=== PATIENT | male | born 1970 | race Caucasian/White ===

== ENCOUNTER 2021-05-07 11:33 | Outpatient (CLI) | payer BC, SELFPAY ==
--- NOTE | 2021-05-07 11:53 | XR_ITS ---
WS: [id number] Chest 2 views, 05/07/2021 Clinical Data: COUGH/WHEEZING/TOBACCO USE/HTN Comparison: PA and lateral chest, 03/31/2008. Findings: No nodules, masses or effusions are seen. The heart is normal. The pulmonary vascularity is not increased. No pneumonia or pneumothorax is seen. There is minimal sclerosis of the anterior aspe ct of the right fifth rib which may be an incidental finding. XR/XR chest 2V* [id number] Impression: Negative for acute cardiopulmonary disease.
== END 2021-05-07 11:34 | disposition home or self-care (01) ==
LOC: RAD 11:42
PROVIDERS: PCP Nurse Practitioner Family; Visit Provider Nurse Practitioner Family
DX: I10 Essential (primary) hypertension (principal); R05.9 Cough, unspecified; R06.2 Wheezing; Z72.0 Tobacco use; Z68.33 Body mass index [BMI] 33.0-33.9, adult; J33.9 Nasal polyp, unspecified
CPT/HCPCS: 71046

== ENCOUNTER → 2021-07-04 10:08 | Outpatient (BNVA) | payer BC, SELFPAY | PROVIDERS: PCP Nurse Practitioner Family; Visit Provider Nurse Practitioner Family | DX: Z01.812 Encounter for preprocedural laboratory examination (principal) | CPT/HCPCS: 87635 ==

== ENCOUNTER 2021-07-10 13:36 | Outpatient (CLI) | payer BC, SELFPAY ==
--- NOTE | 2021-07-10 14:05 | PFTS_ITS ---
Date of Study:07/10/21 Date of Dictation: MECHANICS: Forced vital capacity (FVC) is normal. Forced expiratory volume in one second (FEV1) is normal. FEV1/FVC is normal. FLOW VOLUME LOOP: No peak expiratory flow on expiratory flow volume loop. LUNG VOLUMES: Total lung capacity (TLC) is normal. Residual volume (RV) is reduced. DIFFUSING CAPACITY FOR CARBON MONOXIDE: Normal. INTERPRETATION: The prebronchodilator spirometry is normal. No postbronchodilator spirometry was performed. There is nonspecific reduction in residual volume which is likely secondary to obesity. The total lung capacity is normal. Gas exchange (DLCO) is normal. MTDD
== END 2021-07-10 13:37 | disposition home or self-care (01) ==
LOC: RT 13:38
PROVIDERS: PCP Nurse Practitioner Family; Visit Provider Nurse Practitioner Family
DX: R06.2 Wheezing (principal); R05.9 Cough, unspecified; J30.2 Other seasonal allergic rhinitis
CPT/HCPCS: 94010; 94726; 94729

== ENCOUNTER 2021-11-20 09:59 | Emergency (ER) | payer BC, SELFPAY ==
[2021-11-20 10:03] VITALS: BP 160/83; PULSE 66; RESP 18; TEMP 36.6; O2SAT 99; BMI 34.0
[2021-11-20 10:29] LABS: Basophils # 0.1 10^3/uL (0.0-0.1); Basophils % 0.9 %; Eosinophils # 0.4 10^3/uL (0.0-0.8); Eosinophils % 3.1 %; Hematocrit 52.1 % (42.0-52.0); Hemoglobin 18.4 g/dL (11.7-16.6); Lymphocytes # 1.9 10^3/uL (0.8-4.8); Lymphocytes % 14.1 %; Mean Corpuscular HGB Conc 35.3 g/dL (30.0-36.0); Mean Corpuscular Hemoglobin 32.4 pg (28.0-34.0); Mean Corpuscular Volume 91.7 fl (80-94); Mean Platelet Volume 10.7 fL (7.4-10.4); Monocytes # 0.8 10^3/uL (0.2-0.9); Monocytes % 6.1 %; Neutrophils # 10.05 10^3/uL (1.8-7.7); Neutrophils % 75.3 %; Nucleated Red Blood Cells % 0 %; Platelet Count 229 10^3/cmm (130-400); Red Blood Count 5.68 10^6/uL (4.1-5.3); Red Cell Distribution Width 11.9 % (12.1-15.1); White Blood Count 13.4 10^3/uL (4.0-10.0)
[2021-11-20 10:48] LABS: Alanine Aminotransferase 21 U/L (0-41); Albumin Level 4.2 g/dL (3.5-5.2); Alkaline Phosphatase 149 IU/L (40-130); Aspartate Amino Transferase 22 U/L (0-40); Blood Urea Nitrogen 17 mg/dL (6-20); Calcium 8.7 mg/dL (8.5-10.5); Carbon Dioxide 22 mmol/L (22-29); Chloride 101 mmol/L (98-107); Globulin 2.6 g/dL (1.3-4.6); Glomerular Filtration Rate 64.4 mL/min (90-130); Glucose 130 mg/dL (65-115); Lipase 24 U/L (13-60); Osmolality Calculated 279 mOsm/kg (285-295); Sodium 133 mmol/L (136-145); Total Bilirubin 0.3 mg/dL (0.15-1.2); Total Protein 6.8 g/dL (6.6-8.7)
--- NOTE | 2021-11-20 11:18 | US_ITS ---
WS: [id number] ULTRASOUND ABDOMEN LIMITED CLINICAL INFORMATION: RUQ pain, N/V FINDINGS: Liver Size: Normal. Craniocaudal length: 15.5 cm. Echogenicity: Normal. Surface nodularity: None. Mass (size and location): None. Bile ducts Intrahepatic ducts: Normal. Common bile duct diameter: 0.5 cm. Gallbladder Cholelithiasis with gallbladder wall thickening. Shadowing gallstone near the gallbladder neck. Gallstones: Present Gallbladder sludge: None. Gallbladder wall thickenin.4 mm Pericholecystic fluid: None. Sonographic Murary sign: Absent Pancreas Not seen due to bowel gas Right kidney: Normal. Hydronephrosis: None. Size: 11.0 cm x 6.6 cm x 5.5 cm. Abdominal aorta and IVC Visualized portions are normal. Ascites: None. US/US gall bladder [id number] IMPRESSION: 1. Cholelithiasis with mild gallbladder wall thickening. Gallstone within the neck of the gallbladder. No pericholecystic fluid or edema. Negative Murray's s ign. 2. Normal common bile duct. 3. Liver is normal in appearance. 4. No hydronephrosis in RIGHT kidney. 5. No ascites.
--- NOTE | 2021-11-20 11:19 | ED_ITS ---
Documented by User: BOUBACAR Fitzgerald 11/20/21 13:35 HPI - Abdominal Pain General: Chief Complaint: Abdominal Pain Stated Complaint: ABD Pain, Vomiting Time Seen by Provider: 11/20/21 10:07 Source: patient and family Mode of arrival: ambulatory Limitations: no limitations History of Present Illness: Patient is a 51-year-old male who presents to ED today with a complaint of intermittent right upper quadrant abdominal pains over the past week or so. Patient states he has had several episodes of severe right upper quadrant pains almost always following eating over the past week. He has had associated nausea and vomiting along with the pains. Mild diarrhea. He has not noticed any blood in his stool or blood in his emesis. No fevers. Patient denies urinary symptoms. Patient states upon arrival he is not having any symtpoms. MD elicited complaint: abdominal pain Onset (ago): day(s) Pain Consistency: intermittent Location: RUQ Radiation: back Migration to: no migration Exacerbating factors: eating Relieving factors: nothing Associated Symptoms: Reports diarrhea, nausea and vomiting; Denies chills, dysuria, fever(s), hematochezia, hematuria, hematemesis and melena Review of Systems Const: Denies: fever(s), chills, body aches, fatigue or malaise Card: Denies: chest pain Resp: Denies: dyspnea GI: Reports: abdominal pain, nausea, vomiting and diarrhea; Denies: hematemesis, hematochezia or melena : Denies: flank pain, dysuria or hematuria Musc: Denies: neck pain, back pain, extremity pain or joint pain Skin/Breast: Denies: rash Neuro: Denies: headache(s) PFSH ED PFSH: Family History Other Cancer Diabetes Hypertension Social History Smoking and tobacco status: current some day smoker Physical Exam Const: COMMON NORMALS: no acute distress, patient oriented x3, no limitations and alert GENERAL APPEARANCE: cooperative NUTRITIONAL APPEARANCE: overweight ORIENTATION/CONSCIOUSNESS: Yes awake, Yes oriented to person, Yes oriented to place and Yes oriented to time Chest: COMMONS NORMALS: normal inspection of the chest and normal palpation of entire chest wall Resp: COMMON NORMALS: normal respiratory effort and clear to auscultation bilaterally AUSCULTATION: clear to auscultation bilaterally Cardio: COMMON NORMALS: regular rate and regular rhythm RATE: regular rate RHYTHM: regular rhythm GI: COMMON NORMALS: Normal to inspection, nondistended, normoactive bowel sounds present, Soft to palpation, No hepatosplenomegaly present and no masses INSPECTION: Yes normal to inspection AUSCULTATION: Yes normoactive bowel sounds PALPATION: Yes Soft to palpation, Yes Tenderness to palpation present (GI) (very mild RUQ/epigastric pain), No Guarding due to palpation present (GI), No Rigid due to palpation and Yes No hepatosplenomegaly present : COMMON NORMALS: Yes no CVA tenderness BLADDER/KIDNEY EXAM: Yes no CVA tenderness Back/Pelvis: COMMON NORMALS: no CVA tenderness, thoracic and lumbar spine normal to inspection, no thoracic nor lumbar tenderness and thoraco-lumbar ROM normal Extremity: COMMON NORMALS: normal to inspection Neuro: COMMON NORMALS: patient oriented x3, moves all extremities, no focal motor deficits and no sensory deficits noted SENSORIUM/ORIENTATION: Yes alert, Yes oriented to person, Yes oriented to place and Yes oriented to time Skin: COMMON NORMALS: no rashes or lesions noted GENERAL SKIN EXAM: no rashes or lesions noted Course Consultations: Consultation #1: Dr. Nina-we will see patient in office at first available appointment with plan for probable cholecystectomy this week; recommends placing patient on Augmentin twice daily Vital Signs: Vital signs: Vital Signs Temperature 97.8 F 11/20/21 10:03 Pulse Rate 65 11/20/21 13:04 Respiratory Rate 16 11/20/21 13:04 Blood Pressure 162/80 11/20/21 13:04 Pulse Oximetry 97 11/20/21 13:04 MDM - Abdominal Pain Medical Decision Making Patient is a nice 51-year-old male here for intermittent right upper quadrant pains, nausea, vomiting, diarrhea that all seem to be brought on by eating. He is not currently symptomatic upon arrival to the ED. His vital signs are stable. Labs show white count of 13.4. His LFTs/lipase overall look good. Very minor elevation to his alk phos at 149. US of his gallbladder shows cholelithiasis with mild gallbladder wall thickening at 4.4 mm. He does have a stone within the neck of his gallbladder which most likely is the culprit of his intermittent symptoms. He has no pericholecystic fluid or edema. Negative Murray sign. CBD is normal. Discussed with Dr. Nina who will see patient in office most likely tomorrow with plan for elective cholecystectomy this week. Strict return ED precautions were given to patient. Lab Data : 11/20/21 10:11 11/20/21 10:11 Labs/Radiology: Radiology Impressions Gallbladder Ultrasound 11/20/21 11:18 IMPRESSION: 1. Cholelithiasis with mild gallbladder wall thickening. Gallstone within the neck of the gallbladder. No pericholecystic fluid or edema. Negative Murray's sign. 2. Normal common bile duct. 3. Liver is normal in appearance. 4. No hydronephrosis in RIGHT kidney. 5. No ascites. Laboratory Results WBC 13.4 10^3/uL (4.0-10.0) H 11/20/21 10:11 RBC 5.68 10^6/uL (4.1-5.3) H 11/20/21 10:11 Hgb 18.4 g/dL (11.7-16.6) H 11/20/21 10:11 Hct 52.1 % (42.0-52.0) H 11/20/21 10:11 MCV 91.7 fl (80-94) 11/20/21 10:11 MCH 32.4 pg (28.0-34.0) 11/20/21 10:11 MCHC 35.3 g/dL (30.0-36.0) 11/20/21 10:11 RDW 11.9 % (12.1-15.1) L 11/20/21 10:11 Plt Count 229 10^3/cmm (130-400) 11/20/21 10:11 MPV 10.7 fL (7.4-10.4) H 11/20/21 10:11 Neut % (Auto) 75.3 % 11/20/21 10:11 Lymph % (Auto) 14.1 % 11/20/21 10:11 [place] % (Auto) 6.1 % 11/20/21 10:11 Eos % (Auto) 3.1 % 11/20/21 10:11 Baso % (Auto) 0.9 % 11/20/21 10:11 Neut # (Auto) 10.05 10^3/uL (1.8-7.7) H 11/20/21 10:11 Lymph # (Auto) 1.9 10^3/uL (0.8-4.8) 11/20/21 10:11 [place] # (Auto) 0.8 10^3/uL (0.2-0.9) 11/20/21 10:11 Eos # (Auto) 0.4 10^3/uL (0.0-0.8) 11/20/21 10:11 Baso # (Auto) 0.1 10^3/uL (0.0-0.1) 11/20/21 10:11 Nucleated RBC % (auto) 0 % 11/20/21 10:11 Nucleated RBCs # 0.0 /100WBC 11/20/21 10:11 Sodium 133 mmol/L (136-145) L 11/20/21 10:11 Potassium 4.0 mmol/L (3.5-5.1) 11/20/21 10:11 Chloride 101 mmol/L (98-107) 11/20/21 10:11 Carbon Dioxide 22 mmol/L (22-29) 11/20/21 10:11 Anion Gap 14.0 (5-19) 11/20/21 10:11 BUN 17 mg/dL (6-20) 11/20/21 10:11 Creatinine 1.2 mg/dL (0.7-1.2) 11/20/21 10:11 GFR Calculation 64.4 mL/min (90-130) L 11/20/21 10:11 Glucose 130 mg/dL (65-115) H 11/20/21 10:11 Calculated Osmolality 279 mOsm/kg (285-295) L 11/20/21 10:11 Calcium 8.7 mg/dL (8.5-10.5) 11/20/21 10:11 Total Bilirubin 0.3 mg/dL (0.15-1.2) 11/20/21 10:11 AST 22 U/L (0-40) 11/20/21 10:11 ALT 21 U/L (0-41) 11/20/21 10:11 Alkaline Phosphatase 149 IU/L (40-130) H 11/20/21 10:11 Total Protein 6.8 g/dL (6.6-8.7) 11/20/21 10:11 Albumin 4.2 g/dL (3.5-5.2) 11/20/21 10:11 Globulin 2.6 g/dL (1.3-4.6) 11/20/21 10:11 Lipase 24 U/L (13-60) 11/20/21 10:11 Urine Color Yellow (Yellow) 11/20/21 12:05 Urine Appearance Clear (CLEAR) 11/20/21 12:05 Urine pH 5 (5-7) 11/20/21 12:05 Ur Specific [place] 1.025 (1.005-1.030) 11/20/21 12:05 Urine Protein Neg (Negative) 11/20/21 12:05 Urine Glucose (UA) Norm (Normal) 11/20/21 12:05 Urine Ketones Negative (Negative) 11/20/21 12:05 Urine Blood Neg (Negative) 11/20/21 12:05 Urine Nitrate Negative (Negative) 11/20/21 12:05 Urine Bilirubin Neg (Negative) 11/20/21 12:05 Urine Urobilinogen Norm mg/dL (Negative) 11/20/21 12:05 Ur Leukocyte Esterase Negative (Negative) 11/20/21 12:05 Discharge Plan Discharge Patient Disposition: Home Clinical Impression: Cholelithiasis Qualifiers: Cholelithiasis location: gallbladder Cholecystitis presence: without cholecystitis Biliary obstruction: without biliary obstruction Qualified Code(s): K80.20 - Calculus of gallbladder without cholecystitis without obstruction Condition: Stable Prescriptions: New hydrocodone-acetaminophen 5-325 mg tablet 1 tab PO Q6H PRN (Reason: pain) Qty: 14 0RF ondansetron 4 mg tablet,disintegrating 4 mg PO Q8H PRN (Reason: nausea and vomiting) Qty: 14 0RF amoxicillin-pot clavulanate 875-125 mg tablet 1 tab PO BID Qty: 14 0RF No Action Poloxamer 407 Powder miscellaneous 0RF fluticasone furoate 50 mcg/actuation blister with device inhalation 0RF Discharge Orders: Discharge ED (Routine); Ordered 11/20/21 Ordered By: Melissa Griffin Referrals: Maia De NP [Primary Care Provider] - Fady Nina MD [Physician] - Patient Instructions: Cholelithiasis, Biliary Colic (ED), Gallstones (ED) Activity Restrictions/Additional Instructions: As we discussed medication appointment is due Dr. Nina this week in his office to plan for probable cholecystectomy. As we discussed you need to avoid all greasy and fatty foods. We will place you on antibiotics and pain/nausea medications you may use as needed. You need to return to the emergency department for worsening, constant, severe pain, repetitive episodes of vomiting, yellowing of your skin or eyes, fevers greater than 100.4, or any other concerns you may have. I hope you begin to feel better soon. Coding Level of Care Code ED Model Technician for Chg Fwd Exam Comprehensive Documented by User: Eris Newman MD 11/23/21 00:03 HPI - Abdominal Pain General: Chief Complaint: Abdominal Pain Stated Complaint: ABD Pain, Vomiting Time Seen by Provider: 11/20/21 10:07 [facility] ED PFSH: Family History Other Cancer Diabetes Hypertension Social History Smoking and tobacco status: current some day smoker Course Vital Signs: Vital signs: Vital Signs Temperature 97.8 F 11/20/21 10:03 Pulse Rate 65 11/20/21 13:04 Respiratory Rate 16 11/20/21 13:04 Blood Pressure 162/80 11/20/21 13:04 Pulse Oximetry 97 11/20/21 13:04 MDM - Abdominal Pain Medical Decision Making Patient is a nice 51-year-old male here for intermittent right upper quadrant pains, nausea, vomiting, diarrhea that all seem to be brought on by eating. He is not currently symptomatic upon arrival to the ED. His vital signs are stable. Labs show white count of 13.4. His LFTs/lipase overall look good. Very minor elevation to his alk phos at 149. US of his gallbladder shows chol elithiasis with mild gallbladder wall thickening at 4.4 mm. He does have a stone within the neck of his gallbladder which most likely is the culprit of his intermittent symptoms. He has no pericholecystic fluid or edema. Negative Murray sign. CBD is normal. Discussed with Dr. Nina who will see patient in office most likely tomorrow with plan for elective cholecystectomy this week. Strict return ED precautions were given to patient. I have reviewed this documentation by BOUBACAR Fitzgerald. Eris Newman MD Emergency Medicine Lab Data : 11/20/21 10:11 11/20/21 10:11 Labs/Radiology: Radiology Impressions Gallbladder Ultrasound 11/20/21 11:18 IMPRESSION: 1. Cholelithiasis with mild gallbladder wall thickening. Gallstone within the neck of the gallbladder. No pericholecystic fluid or edema. Negative Murray's sign. 2. Normal common bile duct. 3. Liver is normal in appearance. 4. No hydronephrosis in RIGHT kidney. 5. No ascites. Laboratory Results WBC 13.4 10^3/uL (4.0-10.0) H 11/20/21 10:11 RBC 5.68 10^6/uL (4.1-5.3) H 11/20/21 10:11 Hgb 18.4 g/dL (11.7-16.6) H 11/20/21 10:11 Hct 52.1 % (42.0-52.0) H 11/20/21 10:11 MCV 91.7 fl (80-94) 11/20/21 10:11 MCH 32.4 pg (28.0-34.0) 11/20/21 10:11 MCHC 35.3 g/dL (30.0-36.0) 11/20/21 10:11 RDW 11.9 % (12.1-15.1) L 11/20/21 10:11 Plt Count 229 10^3/cmm (130-400) 11/20/21 10:11 MPV 10.7 fL (7.4-10.4) H 11/20/21 10:11 Neut % (Auto) 75.3 % 11/20/21 10:11 Lymph % (Auto) 14.1 % 11/20/21 10:11 [place] % (Auto) 6.1 % 11/20/21 10:11 Eos % (Auto) 3.1 % 11/20/21 10:11 Baso % (Auto) 0.9 % 11/20/21 10:11 Neut # (Auto) 10.05 10^3/uL (1.8-7.7) H 11/20/21 10:11 Lymph # (Auto) 1.9 10^3/uL (0.8-4.8) 11/20/21 10:11 [place] # (Auto) 0.8 10^3/uL (0.2-0.9) 11/20/21 10:11 Eos # (Auto) 0.4 10^3/uL (0.0-0.8) 11/20/21 10:11 Baso # (Auto) 0.1 10^3/uL (0.0-0.1) 11/20/21 10:11 Nucleated RBC % (auto) 0 % 11/20/21 10:11 Nucleated RBCs # 0.0 /100WBC 11/20/21 10:11 Sodium 133 mmol/L (136-145) L 11/20/21 10:11 Potassium 4.0 mmol/L (3.5-5.1) 11/20/21 10:11 Chloride 101 mmol/L (98-107) 11/20/21 10:11 Carbon Dioxide 22 mmol/L (22-29) 11/20/21 10:11 Anion Gap 14.0 (5-19) 11/20/21 10:11 BUN 17 mg/dL (6-20) 11/20/21 10:11 Creatinine 1.2 mg/dL (0.7-1.2) 11/20/21 10:11 GFR Calculation 64.4 mL/min (90-130) L 11/20/21 10:11 Glucose 130 mg/dL (65-115) H 11/20/21 10:11 Calculated Osmolality 279 mOsm/kg (285-295) L 11/20/21 10:11 Calcium 8.7 mg/dL (8.5-10.5) 11/20/21 10:11 Total Bilirubin 0.3 mg/dL (0.15-1.2) 11/20/21 10:11 AST 22 U/L (0-40) 11/20/21 10:11 ALT 21 U/L (0-41) 11/20/21 10:11 Alkaline Phosphatase 149 IU/L (40-130) H 11/20/21 10:11 Total Protein 6.8 g/dL (6.6-8.7) 11/20/21 10:11 Albumin 4.2 g/dL (3.5-5.2) 11/20/21 10:11 Globulin 2.6 g/dL (1.3-4.6) 11/20/21 10:11 Lipase 24 U/L (13-60) 11/20/21 10:11 Urine Color Yellow (Yellow) 11/20/21 12:05 Urine Appearance Clear (CLEAR) 11/20/21 12:05 Urine pH 5 (5-7) 11/20/21 12:05 Ur Specific [place] 1.025 (1.005-1.030) 11/20/21 12:05 Urine Protein Neg (Negative) 11/20/21 12:05 Urine Glucose (UA) Norm (Normal) 11/20/21 12:05 Urine Ketones Negative (Negative) 11/20/21 12:05 Urine Blood Neg (Negative) 11/20/21 12:05 Urine Nitrate Negative (Negative) 11/20/21 12:05 Urine Bilirubin Neg (Negative) 11/20/21 12:05 Urine Urobilinogen Norm mg/dL (Negative) 11/20/21 12:05 Ur Leukocyte Esterase Negative (Negative) 11/20/21 12:05 Discharge Plan Discharge Patient Disposition: Home Clinical Impression: Cholelithiasis Qualifiers: Cholelithiasis location: gallbladder Cholecystitis presence: without merlyn cystitis Biliary obstruction: without biliary obstruction Qualified Code(s): K80.20 - Calculus of gallbladder without cholecystitis without obstruction Condition: Stable Prescriptions: New hydrocodone-acetaminophen 5-325 mg tablet 1 tab PO Q6H PRN (Reason: pain) Qty: 14 0RF ondansetron 4 mg tablet,disintegrating 4 mg PO Q8H PRN (Reason: nausea and vomiting) Qty: 14 0RF amoxicillin-pot clavulanate 875-125 mg tablet 1 tab PO BID Qty: 14 0RF No Action Poloxamer 407 Powder miscellaneous 0RF fluticasone furoate 50 mcg/actuation blister with device inhalation 0RF Discharge Orders: Discharge ED (Routine); Ordered 11/20/21 Ordered By: Melissa Griffin Referrals: Maia De NP [Primary Care Provider] - Fady Nina MD [Physician] - Patient Instructions: Cholelithiasis, Biliary Colic (ED), Gallstones (ED) Activity Restrictions/Additional Instructions: As we discussed medication appointment is due Dr. Nina this week in his offi ce to plan for probable cholecystectomy. As we discussed you need to avoid all greasy and fatty foods. We will place you on antibiotics and pain/nausea medications you may use as needed. You need to return to the emergency department for worsening, constant, severe pain, repetitive episodes of vo miting, yellowing of your skin or eyes, fevers greater than 100.4, or any other concerns you may have. I hope you begin to feel better soon. Coding Level of Care Code ED Model Technician for Chg Fwd Exam Comprehensive
[2021-11-20 12:24] LABS: Add Urine Microscopic? NO; Charge for UA Resulting for Rev
[2021-11-20 12:43] LABS: Bilirubin Urine Neg (Negative); Blood Urine Neg (Negative); Glucose Urine UA Norm (Normal); Ketones Urine Negative (Negative); Leukocyte Esterase Urine Negative (Negative); Nitrate Urine Negative (Negative); Protein Urine Neg (Negative); Specific Gravity, Urine 1.025 (1.005-1.030); Urine Appearance Clear (CLEAR); Urine Color Yellow (Yellow); Urobilinogen Urine Norm (Negative); pH Urine 5 (5-7)
[2021-11-20 13:04] VITALS: BP 162/80; PULSE 65; RESP 16; O2SAT 97
--- NOTE | 2021-11-20 13:22 | DCPLANNER ---
Addendum entered by Sully Matson 11/22/21 15:03: Patient had a follow up appointment scheduled with at general surgery - patient did attend appointment. Original Note: manager auto was asked to schedule a follow up appointment for patient with general surgery. manager auto sent patients information to the front office staff at general surgery. Patients information will be printed and reviewed. Clinic will call patient with appointment information.
== END 2021-11-20 13:33 | disposition home or self-care (01) ==
PROVIDERS: Emergency Provider Physician Assistant; PCP Nurse Practitioner Family
DX: K80.20 Calculus of gallbladder without cholecystitis without obstruction (principal); F17.210 Nicotine dependence, cigarettes, uncomplicated
CPT/HCPCS: 76705; 80053; 81003; 83690; 85025; 99283

== ENCOUNTER 2021-12-18 05:52 | Day surgery (SDC) | payer BC, SELFPAY ==
[2021-12-14 12:55] VITALS: BMI 32.7
[2021-12-18] VITALS (11 sets, daily range): BP systolic 116–172; BP diastolic 57–99; PULSE 57–72; RESP 12–19; TEMP 36.4–36.6; O2SAT 93–99
--- NOTE | 2021-12-18 06:12 | W.PM.OPSUD ---
Surgery/Procedure H&P Update DATE OF PROCEDURE: December 18, 2021 DATE H&P PERFORMED: 11/21/21 H&P UPDATE INFORMATION: I have reviewed H&P completed within last 30 days, I have examined patient prior to procedure and Changes to prior documentation as noted here CHANGES TO PREVIOUS DOCUMENTATION: Patient reports that he lost 30 pounds since have seen in the office. PREOP DIAGNOSIS: Symptomatic cholelithiasis PRIMARY INDICATION FOR PROCEDURE: The same PLANNED PROCEDURE: Operation Date: 12/18/21 07:00 Proposed Procedures p Laparoscopic Cholecystectomy 22283/K80.20(Not Applicable) - Fady Nina MD
[2021-12-18] MEDS: sodium chloride 0.9% 1,000 ML 30 ML IV (06:44)
[2021-12-18] MEDS: acetaminophen 1,000 MG/100 ML PIGGYBACK 400 MG IV (06:44)
[2021-12-18] MEDS: heparin 5,000 unit/mL INJ 1 mL 3000 UNIT SUBCUT (06:47)
[2021-12-18] MEDS: ampicillin-sulbactam 3 GM in sodium chloride 0.9% (plus) 50 ML IV (07:00)
[2021-12-18] MEDS: lidocaine 2% INJ 20 mL INJECTION (07:36)
--- NOTE | 2021-12-18 08:12 | ANES.PREANE2 ---
Pre-Anesthetic Assessment Height/Weight: Height 1.88 m Weight 115.666 kg Temp Pulse Resp BP Pulse Ox 97.8 F 68 18 122/63 99 12/18/21 06:06 12/18/21 06:06 12/18/21 06:06 12/18/21 06:06 12/18/21 06:06 Preop Diagnosis: Symptomatic cholelithiasis Operation Date: 12/18/21 07:00 Proposed Procedures p Laparoscopic Cholecystectomy 40132/K80.20(Not Applicable) - Fady Nina MD Familial anesthetic complications: None Was Beta Mary taken within 24 hours: N/A Was Clonidine taken within 24 hours: N/A Last intake: Intake Last Liquid Date 12/17/21 Last Liquid Time 23:00 Last Solid Date 12/17/21 Last Solid Time 14:00 Social Tobacco and No alcohol Exam alert, oriented x 3 and regular rate & rhythm Airway Submandibular: within normal limits Cervical ROM: within normal limits Mallampati: Class II Dentition: full Pulmonary Chronic Obstructive Pulmonary Disease Metabolic Morbid Obesity Anesthetic Plan ASA status: 2 Anesthesia: General Medications/Allergies Home Medications Medication Instructions Recorded Confirmed Last Taken Type fluticasone furoate 50 50 mcg INHALATION DAILY 05/21/21 12/18/21 Unknown History mcg/actuation blister powder for inhalation poloxamer (bulk) (Poloxamer 407) 1 ea MISCELLANEOUS DAILY 05/21/21 12/18/21 12/17/21 History hydrocodone 5 mg-acetaminophen 325 1 tab PO Q6H PRN #14 tab 11/20/21 12/18/21 12/17/21 Rx mg tablet ondansetron 4 mg disintegrating 4 mg PO Q8H PRN #14 tab 11/20/21 12/18/21 12/17/21 Rx tablet albuterol sulfate 90 mcg/actuation 90 mcg INHALATION DAILY 12/14/21 12/18/21 12/18/21 History aerosol inhaler Allergies Allergy/AdvReac Type Severity Reaction Status Date / Time aspirin Allergy Mild runny Verified 12/14/21 12:52 nose, wheezing ibuprofen Allergy Mild wheezing, Verified 12/14/21 12:52 runny nose Current Medications Generic Name Dose Route Start Last Admin Trade Name Freq PRN Reason Stop Dose Admin Sodium Chloride 1,000 mls @ 30 mls/hr 12/18/21 06:00 12/18/21 06:44 Sodium Chloride 0.9% IV 12/19/21 05:59 30 mls/hr .Q24H CAROLIN Administration PFSH Anesthesia Family History Other Cancer Diabetes Hypertension Social History Smoking and tobacco status: current some day smoker Data Anesthesia Cardiac Studies: No Data to Display
--- NOTE | 2021-12-18 08:38 | PM.OP ---
Operative Report Date of procedure: December 18, 2021 Pre-op diagnosis: Preop Diagnosis Symptomatic cholelithiasis Post-op diagnosis: Acute on top of chronic calculus cholecystitis Incidental finding of umbilical hernia Procedure done: Laparoscopic cholecystectomy and laparoscopic primary repair of umbilical hernia Implants: Pieces Surgicel at the gallbladder fossa Specimens removed/disposition: umbilical hernia sac and contents Gallbladder and contents Surgeon: Fady Nina MD Duct Layer Supervisor: Surgical techs Praveen Pandya and Maile Circulating nurse Susi Anesthesia: General (GETA CONTOUR GRINDER Charleen and Thai) Estimated blood loss (mL): 50 IV fluids (mL): 1,500 Procedure: Patient was identified in the holding area and taken back to the operative suite, placed in supine position intubated by anesthesia . Time-out was done verifying the patient's name/date of /planned procedure and destination after the procedure, all were in agreement. SCDs confirmed to be functioning, preoperative antibiotics administered per protocol, and beta gracy protocol was confirmed. Patient was appropriately secured to the table, footboard was applied to the OR table, before prep and drape anesthesia was asked to tilt the table back and forth to make sure that the patient is appropriately secured and she was. Prep and drape of the abdomen was done under the usual sterile technique, followed by that supraumbilical skin incision,skin incision was done by a 15 blade knife, umbilical hernia was appreciated in the form of fatty component about 1.5 x 1.5 centimeter ,that was dissected and sent out for pathology. And stay sutures were applied to the fascia and Hendricks trocar technique was used to enter the abdominal without injuring any abdominal viscera, started by low flow gas insufflation followed by a high flow, started with a 10 mm laparoscope and under direct vision there was no evidence of any injuries, the scope then switched to a 30? ,10 millimeter scope and under direct visualization 5 millimeter trocar was inserted in the epigastric region followed by two 5 mm trocars were inserted in the right upper quadrant that was done after injection of local lidocaine 2% at all incision sites. Gallbladder showed acute on top of chronic cholecystitis Patient was then positioned in the head up and tilted to the left. Ratcheted forceps were introduced into the lateral most 5mm port and was applied unto the fundus of the gallbladder cephalad and using Bullet forceps the infundibulum of the gallbladder was retracted laterally. Using [place] forceps then L-hook cautery to dissect the peritoneum overlying the Calot's triangle which was then opened medially and laterally until the cystic duct and the cystic artery were skeletonized. Dissection was carried along the body of the gallbladder and after ensuring critical view of safety was identfied. Cystic duct and cystic artery where seen connected to the gallbladder. Clips were applied on the cystic duct towards the common bile duct 1 towards the gallbladder then divided is in sharp scissors, 2 clips were then applied onto the cystic artery and 1 towards the gallbladder and divided by sharp scissors. Additional traversing vessels were clipped and divided Dissection was then carried along of the gallbladder from the gallbladder fossa using cautery as well as sharp dissection with heat energy. The gallbladder then was dissected out from the gallbladder fossa totally , cholecystectomy was then achieved and was placed in an Endo Catch bag and then retrieved from the Hendricks trocar site under direct visualization using a 5 mm 30? scope through the epigastric trocar, specimen was then passed to the circulating nurse to go for permanent pathology,irrigation and hemostasis was done to the gallbladder fossa after hemostasis was secured and finalized by placement of Surgicel pieces at the gallbladder fossa final survey laparoscopy was done that showed no injuries. Suction irrigation was obtained The supraumbilical fascial defect was then closed using interrupted number one PDS sutures using a fascial closure device ;Fam Crowell under direct visualization following that Gas was allowed to deflate,Trocars were then taken out under direct vision there was no evidence of bleeding. Specimen was passed to the circulating nurse for permanent pathology. No drains were placed and the supraumbilical incision as well as all trocar sites were closed by deep subdermal 3/0 Vicryl followed by 4-0 Monocryl to approximate the skin edges of the incisions , dressing was applied in the form of surical glue and the patient patient got extubated and was taken to recovery area in a stable condition. Count of sponges,needles and instruments were completed at the end of the procedure I was present for the whole entire procedure.
[2021-12-18] MEDS: HYDROmorphone 1 mg/mL INJ 1 mL 0.5 MG IVP (09:03)
--- NOTE | 2021-12-18 09:13 | SUR.PHASEI ---
0853 PT TO PACU 4 PT WITH GOOD RESP NOTED ABDOMEN SOFT WITH 4 SITES WITH SKIN GLUE D/I IV TO LT HAND @20 PATENT WITH NS 500ML UP AT KVO RATE PER GRAVITY, MONITOR SR WITH NO ECTOPY, PT C/O O FPAIN TO ABDOMEN (CRAMPING) SEE MED GIVE OR BEFORE TRANSFER , ORDERS RECIEVED TO CONTINUE WITH DILAUDID FOR PAIN IN PACU PER PHASE 1 ORDERS. 0919 PT STATES PAIN IS BETTER, PT TO POSITION OF COMFORT HOB AT 30 DEGREES ICE BAG TO ABDOMEN, PT TO GO TO OPS SOON.,
[2021-12-18] MEDS: TRAMadol 50 mg Tablet PO (09:37)
--- NOTE | 2021-12-18 15:22 | ANE.PACU2 ---
Inpatient post-anesthesia follow up: Airway intact: Yes Vital signs: Temperature 98 F Pulse Rate 57 Respiratory Rate 18 Blood Pressure 116/57 Pulse Oximetry 94 Oxygen Delivery Me thod Room Air Oxygen Flow Rate 8 Fraction of Inspir ed Oxygen Hydration adequate: Yes Nausea and vomiting: No Pain level: 2 Mental status: Baseline
== END 2021-12-18 10:14 | disposition home or self-care (01) ==
PROVIDERS: PCP Nurse Practitioner Family; Visit Provider Surgery
PROC: 0FT44ZZ Resection of Gallbladder, Percutaneous Endoscopic Approach (ICD-10-PCS; CPT 47562; principal; 2021-12-18 07:00)
DX: K80.10 Calculus of gallbladder with chronic cholecystitis without obstruction (principal); K42.9 Umbilical hernia without obstruction or gangrene; J44.9 Chronic obstructive pulmonary disease, unspecified; E66.01 Morbid (severe) obesity due to excess calories; Z68.32 Body mass index [BMI] 32.0-32.9, adult; F17.200 Nicotine dependence, unspecified, uncomplicated
CPT/HCPCS: 47562; 49652; 88302; 88304; J0295; J1100; J1170; J1644; J2250; J2405; J2704; J2710; J3010; J3490; J7030